=== PATIENT | male | born 1965 | race Two or more races ===

== ENCOUNTER 2017-09-01 10:24 | Emergency (ER) | payer BC ==
[2017-09-01] MEDS ORDERED: ONDANSETRON HCL INJ/PF 4 MG/2 ML SDV IV ONE (10:57)
[2017-09-01] MEDS ORDERED: NORMAL SALINE 1000 ML 1,000 ML IV PRN (10:59)
[2017-09-01] MEDS ORDERED: NORMAL SALINE 1000 ML 1,000 ML IV ONE ×2 (10:59→13:23)
--- NOTE | 2017-09-01 11:00 | ER Document Report ---
ED Medical Screen (RME) - General Chief Complaint: High Blood Sugar Stated Complaint: HEADACHE Time Seen by Provider: 09/01/17 10:57 Notes: 52 years old male with no past medical history, was having nausea vomiting a few times as well as headache on and off the occipital region for the last 2 days therefore presented to the nearby urgent care. They found his blood sugar to be 332 with a hemoglobin A1c of 11.2. Therefore he was referred to the ED. Denies any fever chills. Denies any chest pain shortness of breath. TRAVEL OUTSIDE OF THE [place] IN LAST 30 DAYS: No - Related Data Allergies/Adverse Reactions: No Known Allergies Allergy (Verified 09/01/17 10:25) Physical Exam - Vital signs Vitals: Temp Pulse Resp BP Pulse Ox 98.5 F 74 18 151/76 H 99 09/01/17 10:27 09/01/17 10:27 09/01/17 10:27 09/01/17 10:27 09/01/17 10:27 Course - Vital Signs Vital signs: Temp Pulse Resp BP Pulse Ox 98.5 F 74 18 151/76 H 99 09/01/17 10:27 09/01/17 10:27 09/01/17 10:27 09/01/17 10:27 09/01/17 10:27
--- NOTE | 2017-09-01 12:15 | RADIOLOGY REPORT (SQ) ---
EXAM DESCRIPTION: KUB/ABDOMEN (SINGLE VIEW) COMPLETED DATE/TIME: 09/01/2017 12:02 pm REASON FOR STUDY: Abdominal pain COMPARISON: None. NUMBER OF VIEWS: One view. TECHNIQUE: Supine radiographic image of the abdomen acquired. LIMITATIONS: None. FINDINGS: BOWEL GAS PATTERN: Normal bowel gas pattern. No dilated loops. CALCIFICATIONS: No suspicious calcifications. SOFT TISSUES: No gross mass or suggestion of organomegaly. HARDWARE: None in the abdomen. BONES: No acute fracture. No worrisome bone lesions. OTHER: No other significant finding. IMPRESSION: NO RADIOGRAPHIC EVIDENCE FOR ACUTE ABDOMINAL DISEASE. TECHNICAL DOCUMENTATION: JOB ID: [id number] [email or web address] All Rights Reserved Reading location - IP/workstation name: [email or web address]
[2017-09-01 12:29] LABS: APPEARANCE,URINE CLEAR; BILIRUBIN,URINE NEGATIVE (NEGATIVE); COLOR,URINE YELLOW; GLUCOSE, URINE >=500 mg/dL (NEGATIVE); HEMOGLOBIN 16.1 g/dL (13.5-17.0); KETONES,URINE 80 mg/dL (NEGATIVE); LEUKOCYTE ESTERASE,URINE NEGATIVE (NEGATIVE); MEAN CORPUSCULAR HEMOGLOBIN 32.2 pg (27.0-33.4); MEAN CORPUSCULAR HGB CONC 35.7 g/dL (32.0-36.0); MEAN CORPUSCULAR VOLUME 90 fl (80-97); NITRITE,URINE NEGATIVE (NEGATIVE); PLATELET COUNT 173 10^3/uL (150-450); PROTEIN,URINE NEGATIVE (NEGATIVE); RED CELL DISTRIBUTION WIDTH 13.3 % (11.5-14.0); URINE SPECIFIC GRAVITY 1.035; UROBILINOGEN,URINE NEGATIVE mg/dL (<2.0); WHITE BLOOD COUNT 14.8 10^3/uL (4.0-10.5)
[2017-09-01 12:45] LABS: ALANINE AMINOTRANSFERASE 21 U/L (21-72); ALBUMIN 4.6 g/dL (3.5-5.0); ALKALINE PHOSPHATASE 102 U/L (38-126); ASPARTATE AMINO TRANSFERASE 20 U/L (17-59); BILIRUBIN,DIRECT 0.3 mg/dL (0.0-0.4); BILIRUBIN,TOTAL 1.1 mg/dL (0.2-1.3); BLOOD UREA NITROGEN 17 mg/dL (7-20); CALCIUM 9.7 mg/dL (8.4-10.2); CARBON DIOXIDE 16 mmol/L (22-30); CHLORIDE 98 mmol/L (98-107); GLUCOSE 303 mg/dL (75-110); LIPASE 72.7 U/L (23-300); POTASSIUM 4.3 mmol/L (3.6-5.0); TOTAL PROTEIN 8.2 g/dL (6.3-8.2)
[2017-09-01 12:50] LABS: SODIUM 137.5 mmol/L (137-145)
[2017-09-01 12:51] LABS: ANION GAP 24 (5-19)
[2017-09-01 12:59] LABS: ABSOLUTE LYMPHOCYTES# (MANUAL) 0.3 10^3/uL (0.5-4.7); ABSOLUTE MONOCYTES # (MANUAL) 0.7 10^3/uL (0.1-1.4); ABSOLUTE NEUTROPHILS# (MANUAL) 13.8 10^3/uL (1.7-8.2); ANISOCYTOSIS SLIGHT; BASOPHILS % (MANUAL) 0 % (0-2); EOSINOPHILS % (MANUAL) 0 % (0-6); LYMPHOCYTES % (MANUAL) 2 % (13-45); MONOCYTES % (MANUAL) 5 % (3-13); PLATELET COMMENT ADEQUATE; SEGMENTED NEUTROPHILS % (MAN) 93 % (42-78); TOTAL CELLS COUNTED 100; TOXIC GRANULATION SLIGHT
[2017-09-01] MEDS ORDERED: KETOROLAC TROMETHAMINE INJ/PF 30 MG/1 ML SDV IV ONE (13:24)
--- NOTE | 2017-09-01 13:24 | ER Document Report ---
ED General - General Chief Complaint: High Blood Sugar Stated Complaint: HEADACHE Time Seen by Provider: 09/01/17 10:57 Notes: 52-year-old male patient to the emergency department complaining of bilateral temporal pain and posterior occipital pain as well as nausea and vomiting. Has not been eating well for couple of days. Went to urgent care and was told to come here because his blood sugar was elevated. Denies any fever, chills, sweats. Denies any other major symptoms at this time. No prior history of diabetes. Not on any medications. Patient from [place]. Speaks relatively good [place]. Denies any neck stiffness or fever but does have some pain at the occiput upper cervical spine but no neck stiffness. TRAVEL OUTSIDE OF THE [place] IN LAST 30 DAYS: No - HPI Onset: Yesterday - Related Data Allergies/Adverse Reactions: No Known Allergies Allergy (Verified 09/01/17 10:25) Past Medical History - General Information source: Patient - Social History Smoking Status: Never Smoker Chew tobacco use (# tins/day): No Frequency of alcohol use: None Drug Abuse: None Lives with: Spouse/Significant other Family History: Reviewed & Not Pertinent Patient has suicidal ideation: No Patient has homicidal ideation: No - Medical History Medical History: Negative Renal/ Medical History: Denies: Hx Peritoneal Dialysis Review of Systems - Review of Systems Constitutional: denies: Fever, Malaise, Weakness EENT: denies: Blurred vision, Nose congestion, Mouth pain, Vertigo Cardiovascular: denies: Chest pain, Palpitations, Heart racing Respiratory: denies: Cough, Hurts to breathe, Short of breath, Wheezing Gastrointestinal: denies: Abdominal pain, Diarrhea, Nausea, Vomiting Musculoskeletal: See HPI. denies: Back pain, Joint pain, Muscle pain Skin: denies: Dryness, Lesions, Lumps, Rash Hematologic/Lymphatic: denies: Anemia, Blood clots, Easy bleeding, Easy bruising Neurological/Psychological: denies: Confusion, Dementia, Depression Physical Exam - Vital signs Vitals: Temp Pulse Resp BP Pulse Ox 98.5 F 74 18 151/76 H 99 09/01/17 10:27 09/01/17 10:27 09/01/17 10:27 09/01/17 10:27 09/01/17 10:27 Interpretation: Normal - General General appearance: Appears well, Alert - HEENT Head: Normocephalic, Atraumatic Eyes: Normal Pupils: PERRL - Respiratory Respiratory status: No respiratory distress Chest status: Nontender Breath sounds: Normal Chest palpation: Normal - Cardiovascular Rhythm: Regular Heart sounds: Normal auscultation Murmur: No - Abdominal Inspection: Normal Distension: No distension Bowel sounds: Normal Tenderness: Nontender Organomegaly: No organomegaly - Back Back: Normal, Nontender - Extremities General upper extremity: Normal inspection, Nontender, Normal color, Normal ROM , Normal temperature General lower extremity: Normal inspection, Nontender, Normal color, Normal ROM , Normal temperature, Normal weight bearing. No: Harinder's sign - Neurological Neuro grossly intact: Yes Cognition: Normal Orientation: AAOx4 [place] Coma Scale Eye Opening: Spontaneous [place] Coma Scale Verbal: Oriented [place] Coma Scale Motor: Obeys Commands [place] Coma Scale Total: 15 Speech: Normal Motor strength normal: LUE, RUE, LLE, RLE Sensory: Normal - Psychological Associated symptoms: Normal affect, Normal mood - Skin Skin Temperature: Warm Skin Moisture: Dry Skin Color: Normal Course - Re-evaluation Re-evalutation: 09/01/17 14:25 Slightly elevated blood sugar. Does have some ketones and glucose in the urine. Slightly elevated anion gap. Adding VBG. Will also get EKG and cardiac troponin to make sure there is no anginal equivalent at this time. 09/01/17 15:01 At this time added EKG and troponin. EKG not completely normal but does not show any signs of acute injury. Bicarb is low. Gap is slightly elevated the pH is 7.33. Having a headache at this time. CT was unremarkable. 09/01/17 16:28 Patient still having headache. On further evaluation and questioning patient states that the headache began 5 days ago. Worse headache of his life. Head CT did not show any bleed. Went ahead and proceeded with the lumbar puncture to rule out subarachnoid hemorrhage and/or infection. Patient tolerated procedure well. Will significant amount of red blood-tinged CSF in the fourth tube. Concern high at this time for a subarachnoid hemorrhage. Will consult with neurosurgery and receiving hospital at this time to explore options. Head of bed is at 30. Patient is resting comfortably at this time. 09/01/17 17:04 Patient has been accepted by neuro intervention at [facility]. Awaiting transport at this time patient remained stable. 09/01/17 17:07 09/01/17 17:21 Laboratory 09/01/17 09/01/17 09/01/17 11:15 11:15 11:15 WBC 14.8 H RBC 5.00 Hgb 16.1 Hct 45.0 MCV 90 MCH 32.2 MCHC 35.7 RDW 13.3 Plt Count 173 Total Counted 100 Seg Neutrophils % Not Reportable Seg Neuts % (Manual) 93 H Lymphocytes % Not Reportable Lymphocytes % (Manual) 2 L Monocytes % Not Reportable Monocytes % (Manual) 5 Eosinophils % Not Reportable Eosinophils % (Manual) 0 Basophils % Not Reportable Basophils % (Manual) 0 Absolute Neutrophils Not Reportable Abs Neuts (Manual) 13.8 H Absolute Lymphocytes Not Reportable Abs Lymphs (Manual) 0.3 L Absolute Monocytes Not Reportable Abs Monocytes (Manual) 0.7 Absolute Eosinophils Not Reportable Absolute Eos (Manual) 0.0 Absolute Basophils Not Reportable Abs Basophils (Manual) 0.0 Toxic Granulation SLIGHT Platelet Comment ADEQUATE Anisocytosis SLIGHT VBG pH VBG pCO2 VBG HCO3 VBG Base Excess Sodium 137.5 Potassium 4.3 Chloride 98 Carbon Dioxide 16 L Anion Gap 24 H BUN 17 Creatinine 0.67 Est GFR ( Amer) > 60 Est GFR (Non-Af Amer) > 60 Glucose 303 H POC Glucose Calcium 9.7 Magnesium Total Bilirubin 1.1 Direct Bilirubin 0.3 Neonat Total Bilirubin Not Reportable Neonat Direct Bilirubin Not Reportable Neonat Indirect Bili Not Reportable AST 20 ALT 21 Alkaline Phosphatase 102 Troponin I Total Protein 8.2 Albumin 4.6 Lipase 72.7 Urine Color YELLOW Urine Appearance CLEAR Urine pH 5.0 Ur Specific [place] 1.035 Urine Protein NEGATIVE Urine Glucose (UA) >=500 H Urine Ketones 80 H Urine Blood NEGATIVE Urine Nitrite NEGATIVE Urine Bilirubin NEGATIVE Urine Urobilinogen NEGATIVE Ur Leukocyte Esterase NEGATIVE Urine WBC (Auto) 8 Urine RBC (Auto) 2 Squamous Epi Cells Auto 3 Urine Mucus (Auto) RARE Urine Ascorbic Acid NEGATIVE CSF Glucose CSF Total Protein 09/01/17 09/01/17 09/01/17 11:15 12:51 14:32 WBC RBC Hgb Hct MCV MCH MCHC RDW Plt Count Total Counted Seg Neutrophils % Seg Neuts % (Manual) Lymphocytes % Lymphocytes % (Manual) Monocytes % Monocytes % (Manual) Eosinophils % Eosinophils % (Manual) Basophils % Basophils % (Manual) Absolute Neutrophils Abs Neuts (Manual) Absolute Lymphocytes Abs Lymphs (Manual) Absolute Monocytes Abs Monocytes (Manual) Absolute Eosinophils Absolute Eos (Manual) Absolute Basophils Abs Basophils (Manual) Toxic Granulation Platelet Comment Anisocytosis VBG pH 7.33 VBG pCO2 40.8 VBG HCO3 20.9 VBG Base Excess -4.8 Sodium Potassium Chloride Carbon Dioxide Anion Gap BUN Creatinine Est GFR ( Amer) Est GFR (Non-Af Amer) Glucose POC Glucose 270 H Calcium Magnesium 1.8 Total Bilirubin Direct Bilirubin Neonat Total Bilirubin Neonat Direct Bilirubin Neonat Indirect Bili AST ALT Alkaline Phosphatase Troponin I Total Protein Albumin Lipase Urine Color Urine Appearance Urine pH Ur Specific [place] Urine Protein Urine Glucose (UA) Urine Ketones Urine Blood Urine Nitrite Urine Bilirubin Urine Urobilinogen Ur Leukocyte Esterase Urine WBC (Auto) Urine RBC (Auto) Squamous Epi Cells Auto Urine Mucus (Auto) Urine Ascorbic Acid CSF Glucose CSF Total Protein 09/01/17 09/01/17 14:32 15:50 WBC RBC Hgb Hct MCV MCH MCHC RDW Plt Count Total Counted Seg Neutrophils % Seg Neuts % (Manual) Lymphocytes % Lymphocytes % (Manual) Monocytes % Monocytes % (Manual) Eosinophils % Eosinophils % (Manual) Basophils % Basophils % (Manual) Absolute Neutrophils Abs Neuts (Manual) Absolute Lymphocytes Abs Lymphs (Manual) Absolute Monocytes Abs Monocytes (Manual) Absolute Eosinophils Absolute Eos (Manual) Absolute Basophils Abs Basophils (Manual) Toxic Granulation Platelet Comment Anisocytosis VBG pH VBG pCO2 VBG HCO3 VBG Base Excess Sodium Potassium Chloride Carbon Dioxide Anion Gap BUN Creatinine Est GFR ( Amer) Est GFR (Non-Af Amer) Glucose POC Glucose Calcium Magnesium Total Bilirubin Direct Bilirubin Neonat Total Bilirubin Neonat Direct Bilirubin Neonat Indirect Bili AST ALT Alkaline Phosphatase Troponin I < 0.012 Total Protein Albumin Lipase Urine Color Urine Appearance Urine pH Ur Specific [place] Urine Protein Urine Glucose (UA) Urine Ketones Urine Blood Urine Nitrite Urine Bilirubin Urine Urobilinogen Ur Leukocyte Esterase Urine WBC (Auto) Urine RBC (Auto) Squamous Epi Cells Auto Urine Mucus (Auto) Urine Ascorbic Acid CSF Glucose 115 H CSF Total Protein 87 H KUB X-Ray 09/01/17 10:58 IMPRESSION: NO RADIOGRAPHIC EVIDENCE FOR ACUTE ABDOMINAL DISEASE. Head CT 09/01/17 13:24 IMPRESSION: NORMAL BRAIN CT WITHOUT CONTRAST. EVIDENCE OF ACUTE STROKE: NO. - Vital Signs Vital signs: Temp Pulse Resp BP Pulse Ox 98.5 F 74 20 128/64 H 98 09/01/17 10:27 09/01/17 10:27 09/01/17 17:01 09/01/17 17:00 09/01/17 17:01 - Laboratory Result Diagrams: 09/01/17 11:15 09/01/17 11:15 Laboratory results interpreted by me: 09/01/17 09/01/17 09/01/17 11:15 11:15 11:15 WBC 14.8 H Seg Neuts % (Manual) 93 H Lymphocytes % (Manual) 2 L Abs Neuts (Manual) 13.8 H Abs Lymphs (Manual) 0.3 L Carbon Dioxide 16 L Anion Gap 24 H Glucose 303 H POC Glucose Urine Glucose (UA) >=500 H Urine Ketones 80 H CSF Glucose CSF Total Protein 09/01/17 09/01/17 12:51 15:50 WBC Seg Neuts % (Manual) Lymphocytes % (Manual) Abs Neuts (Manual) Abs Lymphs (Manual) Carbon Dioxide Anion Gap Glucose POC Glucose 270 H Urine Glucose (UA) Urine Ketones CSF Glucose 115 H CSF Total Protein 87 H - EKG Interpretation by Me EKG shows normal: Sinus rhythm, [place], Intervals, QRS Complexes, ST-T Waves Additional EKG results interpreted by me: 09/01/17 15:01 There are Q waves present in lead III and aVF age-indeterminate inferior injury pattern. Procedures - Lumbar Puncture Lumbar puncture Time completed: 16:26 Consent obtained: Yes Lumbar puncture pre-procedure: Sterile PPE donned, Betadine prep applied, Chloraprep applied, Sterile drapes applied Patient position: Lying Needle size: 22 Lumbar puncture location: L3-L4 space Anesthetic type: 1% Lidocaine mL's of anesthetic: 10 Amount/type of drainage: 8 mL of xanthochromic CSF Number of attempts: 3 Complications: No Notes: 09/01/17 16:27 2 attempts were made at the L4-L5 space. No complications but initially had CSF but then stopped. Eventually proceeded to reprep and did the L3-L4 interspace. One attempt. Good flow of CSF. All 4 tubes remained bloody and xanthochromic in appearance. Critical Care Note - Critical Care Note Total time excluding time spent on procedures (mins): 75 Comments: Consultation with specialists, procedures, interview with patient, metabolic abnormalities Discharge - Discharge Clinical Impression: Subarachnoid hemorrhage, Hyperglycemia, Dehydration Condition: Good Disposition: [facility]
--- NOTE | 2017-09-01 14:04 | RADIOLOGY REPORT (SQ) ---
EXAM DESCRIPTION: CT HEAD WITHOUT COMPLETED DATE/TIME: 09/01/2017 1:44 pm REASON FOR STUDY: Headache and neck pain, pain behind ears COMPARISON: None. TECHNIQUE: Axial images acquired through the brain without intravenous contrast. Images reviewed wi th bone, brain and subdural windows. Additional sagittal and coronal reconstructions were generated. Images stored on PACS. All CT scanners at this facility use dose modulation, iterative reconstruction, and/or weight based d osing when appropriate to reduce radiation dose to as low as reasonably achievable (ALARA). [facility]: Dose Right [facility]: CareDose [facility]: Dose Right [facility]: Teradose 4D [facility]: [employer] RADIATION DOSE: CT Rad equipment meets quality standard of care and radiation dose reduction techniq ues were employed. CTDIvol: 53.2 mGy. DLP: 1070 mGy-cm. mGy. LIMITATIONS: None. FINDINGS: VENTRICLES: Normal size and contour. CEREBRUM: No masses. No hemorrhage. No midline shift. No evidence for acute infarction. Normal gra y/white matter differentiation. No areas of low density in the white matter. CEREBELLUM: No masses. No hemorrhage. No alteration of density. No evidence for acute infarction. EXTRAAXIAL SPACES: No fluid collections. No masses. ORBITS AND GLOBE: No intra- or extraconal masses. Normal contour of globe without masses. CALVARIUM: No fracture. PARANASAL SINUSES: No fluid or mucosal thickening. SOFT TISSUES: No mass or hematoma. OTHER: No other significant finding. IMPRESSION: NORMAL BRAIN CT WITHOUT CONTRAST. EVIDENCE OF ACUTE STROKE: NO. COMMENT: Quality ID # [id number]: Final reports with documentation of one or more dose reduction techniques (e.g., Automated exposure control, adjustment of the mA and/or kV according to patient size, use of iterative reconstruction technique) TECHNICAL DOCUMENTATION: JOB ID: [id number] [employer]- All Rights Reserved Reading location - IP/workstation name: [email or web address]
[2017-09-01 14:44] LABS: VENOUS BLOOD BASE EXCESS -4.8 mmol/L; VENOUS BLOOD HCO3 20.9 mmol/L (20-32); VENOUS BLOOD PCO2 40.8 mmHg (35-63); VENOUS BLOOD PH 7.33 (7.30-7.42)
[2017-09-01] MEDS ORDERED: MORPHINE SULFATE 10 MG/ML INJ IV ONE (15:04)
[2017-09-01] MEDS ORDERED: PROCHLORPERAZINE EDISYLATE INJ 10 MG/2 ML VIAL IV ONE (15:04)
[2017-09-01] MEDS ORDERED: LIDOCAINE 1% INJ-PF (10 MG/ML) 30 ML SDV ONE (15:39)
[2017-09-01 17:16] LABS: GLUCOSE,CSF 115 mg/dL (40-70); PROTEIN,CSF 87 mg/dL (12-60)
[2017-09-01 17:22] LABS: CSF TUBE NUMBER 1
[2017-09-01 17:23] LABS: APPEARANCE ALL TUBES SLIGHTLY HAZY
[2017-09-01 17:24] LABS: COLOR ALL TUBES DARK YELLOW
[2017-09-01 17:25] LABS: RED BLOOD CELL,CSF 4670 /uL (0-10)
[2017-09-01 17:26] LABS: WHITE BLOOD CELL,CSF 308 /uL (0-5)
[2017-09-01 17:27] LABS: APPEARANCE ALL TUBES SLIGHTLY HAZY; COLOR ALL TUBES DARK YELLOW; CSF TUBE NUMBER 4; RED BLOOD CELL,CSF 4515 /uL (0-10)
[2017-09-01 17:30] LABS: WHITE BLOOD CELL,CSF 688 /uL (0-5)
[2017-09-01] MEDS ORDERED: VANCOMYCIN HCL INJ 1000 MG VIAL IV ONE (18:02)
[2017-09-01] MEDS ORDERED: CEFTRIAXONE INJ 1000 MG VIAL IV ONE (18:03)
[2017-09-01 19:54] VITALS: BP 143/79
--- NOTE | 2017-09-02 00:02 | EKG REPORT ---
SEVERITY:- ABNORMAL ECG - SINUS RHYTHM INFERIOR INFARCT, OLD : Confirmed by: Akilah Otero MD 02-Sep-2017 00:02:01
[2017-09-02 08:34] LABS: H. INFLUENZAE TYPE B AG NEGATIVE (NEGATIVE); S. PNEUMONIAE AG NEGATIVE (NEGATIVE); STREP. GROUP B AG NEGATIVE (NEGATIVE)
== END 2017-09-01 19:52 | disposition short-term general hospital (02) ==
LOC: ER 10:24
PROC: 009U3ZX Drainage of Spinal Canal, Percutaneous Approach, Diagnostic (ICD-10-PCS; principal; 2017-09-01)
DX: I60.9 Nontraumatic subarachnoid hemorrhage, unspecified (principal); R73.9 Hyperglycemia, unspecified; R51 Headache; R11.2 Nausea with vomiting, unspecified; E86.0 Dehydration
CPT/HCPCS: 93005; 99291; 99292; 96361; 96375; 96365; 96368; 36415; 87040; 87070; 87205; 86403 ×6; 82962; 83690; 83735; 85025; 89050; 82945; 84157; 87077; 80076; 80048; 81001; 84484; 87186; 82803; 74018; 70450; 93010; 62270; J3490; J1885; J2270; J0780; J0696; J2405; J7030; J3370